=== PATIENT | female | born 1940 | race Asian ===

== ENCOUNTER 2025-02-21 08:24 | Emergency (ER) | payer OTHER ==
[~2025-02-21] VITALS: Ht 162.6 cm; Wt 56.0 kg
[2025-02-21] MEDS: MORPHINE SULFATE 4 MG/ML SYRINGE IVP ONE (09:45)
[2025-02-21 09:46] LABS: PLATELET COUNT (AUTO) 165 K/uL (150-450); RED BLOOD CELL COUNT(AUTO) 3.50 MIL/uL (4.00-5.20); RED CELL DISTRIBUTION WIDTH 15.0 % (11.5-14.5); WHITE BLOOD COUNT (AUTO) 7.5 K/uL (4.5-11.0)
[2025-02-21] MEDS: ONDANSETRON HCL 4 MG/2 ML VIAL IVP ONE (09:46)
[2025-02-21 10:03] LABS: CALCIUM, TOTAL 8.7 mg/dL (8.8-10.5); CREATININE 1.08 mg/dL (0.60-1.30); GLOMERULAR FILTR. RATE CALC 48.0 mL/min (>60); GLUCOSE,RANDOM 152.0 mg/dL (70-110); SODIUM SERUM 137.0 mmol/L (136-145); UREA NITROGEN, BLOOD 16.0 mg/dL (7-18)
[2025-02-21 10:09] LABS: ASPARTATE AMINOTRANSFERASE 23.0 U/L (15-37); CREATINE KINASE, TOTAL ONLY 60.0 U/L (26-192); TOTAL PROTEIN, SERUM 7.6 g/dL (6.4-8.2)
[2025-02-21 10:10] LABS: TROPONIN I-HIGH SENSITIVITY 9 ng/L (<51)
[2025-02-21] MEDS: MORPHINE SULFATE 2 MG/ML SYRINGE IVP ONE (11:38)
[2025-02-21 13:05] VITALS: TEMP 98.8
[2025-02-21] MEDS ORDERED: MIRT-89 PO (13:17)
[2025-02-21] MEDS ORDERED: DONE-55 PO (13:18)
[2025-02-21] MEDS ORDERED: LEVO88TA4 PO (13:20)
[2025-02-21] MEDS ORDERED: EZET10TA82 PO (13:20)
[2025-02-21 13:36] VITALS: BP 148/81; PULSE 87; RESP 14; O2SAT 97
== END 2025-02-21 13:44 | disposition short-term general hospital (02) ==
LOC: EMS 08:24
DX: S42.292A Other displaced fracture of upper end of left humerus, initial encounter for closed fracture (principal); I10 Essential (primary) hypertension; W19.XXXA Unspecified fall, initial encounter; Y93.89 Activity, other specified; Y92.89 Other specified places as the place of occurrence of the external cause; Y99.8 Other external cause status
CPT/HCPCS: 99285; 70450; 96374; 29105; 96375; 71045; 80053; 82550; 84484; 85025; 85610; 85730; 36415; 73030; 73060; 73070; 73100; 72125; 93005; 96376; J0360; J2270 ×2; J2405